=== PATIENT | female | born 2000 | race Caucasian/White ===

== ENCOUNTER 2023-10-07 09:38 | Outpatient (REF) | payer OTHER, SELFPAY ==
--- NOTE | ~2023-10-07 | US_ITS ---
EXAMINATION: US PELVIS CLINICAL INFORMATION: Dysfunctional uterine bleeding, IUD check, regular her last menstrual period. COMPARISON: None available. TECHNIQUE: Ultrasound of the pelvis is performed using both transabdominal and transvaginal transducers along with Doppler. Transvaginal imaging is performed due to inadequate visualization transabdominally. FINDINGS: The uterus measures 7.0 x 2.3 x 3.7 cm and is anteverted. No discrete fibroid is appreciated. IUD in place within the endometrial cavity. IUD limits visualization of endometrium. Imaged segment of endometrium with thickness of 3 mm. Left ovary measures 2.3 x 1.8 x 1.5 cm, volume 3.2 mL and is unremarkable. Right ovary measures 5.6 x 2.9 x 4.3 cm, volume 36.5 mL. A 4.3 x 1.9 x 3.2 cm right ovarian cyst is likely simple. US/US pelvic and transvaginal IMPRESSION: 1. IUD in place within the endometrial cavity. IUD limits visualization of endometrium. Image segment of endometrium with thickness of 3 mm. 2. A 4.3 cm right ovarian cyst is likely simple and likely physiologic. Recommend follow-up ultrasound in 6-8 weeks.
== END 2023-10-07 09:39 | disposition home or self-care (01) ==
LOC: HO.UMASIMG 09:38
PROVIDERS: Visit Provider Family Medicine
DX: Z30.431 Encounter for routine checking of intrauterine contraceptive device (principal); N92.6 Irregular menstruation, unspecified
CPT/HCPCS: 76830; 76856